=== PATIENT | female | born 1995 | race Caucasian/White ===

== ENCOUNTER → 2016-07-21 | Outpatient (CLI) | payer BC ==
--- NOTE | 2016-07-21 12:32 | DIAGNOSTIC IMAGING REPORT ---
MRI LUMBAR SPINE W/O CONTRAST CLINICAL HISTORY: LOW BACK PAIN TECHNIQUE: Sagittal and axial T1, T2 and STIR images were obtained. COMPARISON STUDY: No previous studies for comparison. OBSERVATIONS: The vertebral bodies and posterior elements appear intact. There is no abnormal bony signal present to suggest a marrow replacement process. L1-2: There is a minimal right-sided disc bulge. There is no significant spinal or foraminal stenosis. L2-3: There is disc desiccation. There is no focal herniation. There is no spinal or foraminal stenosis. L3-4: No disc protrusions or extrusions. No evidence of spinal canal or neural foraminal compromise. L4-5: There is a minimal circumferential disc bulge. There is no significant spinal or foraminal stenosis. L5-S1: No disc protrusions or extrusions. No evidence of spinal canal or neural foraminal compromise. The conus medullaris and cauda equina appear normal. There are no areas of marrow edema to indicate a stress fracture. IMPRESSION: Early degenerative changes. No evidence of significant spinal or foraminal stenosis. Electronically signed by: Shun Mayen M.D. 07/21/2016 12:30 PM Dictated Date/Time: 07/21/2016 12:24 PM
== END | disposition home or self-care (01) ==
LOC: C.MRI 11:31
PROVIDERS: ATTEND Family Medicine Sports Medicine
DX: M54.5 Low back pain (principal)